=== PATIENT | male | born 1965 | race African-American/Black ===

== ENCOUNTER 2019-07-01 12:00 | Emergency (ER) | payer MEDICAID ==
[~2019-07-01] VITALS: Ht 172.7 cm; Wt 80.0 kg
[~2019-07-01 12:00] MED LIST: NAPR-677; SERT25TA; TRAM50TA94
[2019-07-01] MEDS ORDERED: OXYCODONE HCL/ACETAMINOPHEN 5/325MG TABLET PO ONE (13:30)
[2019-07-01 15:46] VITALS: BP 117/80
== END 2019-07-01 15:46 | disposition home or self-care (01) ==
LOC: ER 12:10
DX: H20.9 Unspecified iridocyclitis (principal); H11.31 Conjunctival hemorrhage, right eye; M79.18 Myalgia, other site; Z79.899 Other long term (current) drug therapy
CPT/HCPCS: 70486; 71101; 99284